=== PATIENT | female | born 1990 | race Caucasian/White ===

== ENCOUNTER → 2017-11-12 | Outpatient (CLI) | payer OTHER ==
[~2017-11-12] MED LIST: Ambien10 MG PO; BENTYL20 MG PO; BUSP10 PO; BUSP5 PO; DOCCAL240 PO; FLUO10 PO; HYDPAM50 PO; IBUP800 PO; LORA1 PO; METO5A PO; MULVITMINE PO; OMEP20ER PO; ONDA4ODT MM; OXYACE5T PO; PROM25 PO; TRAZ50 PO; Verotin-Gr Cap1 EACH PO
[2017-11-13 15:43] LABS: Source VAG/CERVIX
== END | disposition home or self-care (01) ==
LOC: LAB 11:26
PROVIDERS: Obstetrics & Gynecology
DX: Z01.419 Encounter for gynecological examination (general) (routine) without abnormal findings (principal)
CPT/HCPCS: G0123

== ENCOUNTER → 2024-05-02 | Outpatient (CLI) | payer BC ==
[2024-05-04 14:34] LABS: APTIMA MEDIA TYPE Urine; C. TRACHOMATIS BY TMA Negative (Negative); N. GONORRHOEAE BY TMA Negative (Negative); SPECIMEN SOURCE Urine
== END | disposition home or self-care (01) ==
LOC: LAB SHORT 11:41
PROVIDERS: Family Medicine
DX: Z30.430 Encounter for insertion of intrauterine contraceptive device (principal)
CPT/HCPCS: 87491; 87591

== ENCOUNTER → 2025-03-11 | Outpatient (CLI) | payer BC | LOC: LAB SHORT 09:56 → LAB 09:56 | DX: J02.9 Acute pharyngitis, unspecified (principal) | CPT/HCPCS: 87081 ==